=== PATIENT | male | born 1950 | race Caucasian/White ===

== ENCOUNTER 2019-10-28 12:48 | Emergency (ER) | payer MEDICARE ==
[2019-10-28] MEDS ORDERED: Sodium Chloride 0.9% 10 ML Syringe FLUSH PRN (13:11)
[2019-10-28] MEDS ORDERED: Lidocaine 1% 10 ML MDV INJECT ONE (13:11)
[2019-10-28] MEDS ORDERED: ceFAZolin 2 GM in Premix Bag 1 BAG IV ONE (13:11)
[2019-10-28] MEDS ORDERED: Diphtheria,Pertussis(Acell),Tetanus Vaccine 0.5 ML Syringe IM ONE (13:17)
--- NOTE | 2019-10-28 13:19 | EDM.PDOC ---
ED HPI GENERAL MEDICAL PROBLEM - General Chief Complaint: Laceration Stated Complaint: LT HAND LAC Time Seen by Provider: 10/28/19 12:54 Source of Information: Reports: Patient, RN Notes Reviewed History Limitations: Reports: No Limitations - History of Present Illness INITIAL COMMENTS - FREE TEXT/NARRATIVE: The patient is a 69-year-old male who presents to the ED for evaluation of a left hand laceration. The patient states that around 12:15pm, he was working in his garage with a needle grinder/cutting wheel, and ended up cutting his left hand. Patient's not sure of his last tetanus booster. The laceration does involve his left MCP, on the posterior aspect, and does look as if he may have disrupted his extensor tendon. He states that he can bend the finger down, can but but cannot bring it back. Patient is not having any numbness or tingling to the area. Patient is right-hand dominant. Laceration is linear, no active bleeding, and is roughly 4 cm in length. Left Hand Pain Score (Numeric/FACES): 4 - Related Data Allergies Allergy/AdvReac Type Severity Reaction Status Date / Time No Known Allergies Allergy Verified 08/13/19 08:37 Home Meds: Home Meds Fluticasone Propion/Salmeterol [Wixela 250-50 Inhub] 1 puff INH DAILY 10/28/19 [ History] Past Medical History Respiratory History: Reports: Asthma Social & Family History - Tobacco Use Smoking Status *Q: Current Every Day Smoker Years of Tobacco use: 30 Packs/Tins Daily: 0.2 - Caffeine Use Caffeine Use: Reports: Coffee - Recreational Drug Use Recreational Drug Use: No ED ROS GENERAL - Review of Systems Review Of Systems: Comprehensive ROS is negative, except as noted in HPI. ED EXAM, SKIN/RASH Exam: See Below Exam Limited By: No Limitations General Appearance: Alert, WD/WN, No Apparent Distress Respiratory/Chest: No Respiratory Distress, Lungs Clear, Normal Breath Sounds, No Accessory Muscle Use, Chest Non-Tender Cardiovascular: Normal Peripheral Pulses, Regular Rate, Rhythm, No Murmur Peripheral Pulses: 3+: Radial (L), Radial (R) Extremities: Normal Capillary Refill, Limited Range of Motion (of left index finger, has good flexion, but does not have extension capabilities at this time. ) Neurological: Alert, Oriented, Normal Cognition, No Motor/Sensory Deficits Psychiatric: Normal Affect, Normal Mood Skin: Warm, Dry, Normal Color, No Rash, Wound/Incision (4cm linear wound to posterior aspect of 2nd MCP joint, with apparent extensor tendon injury. No active bleeding.) ED SKIN PROCEDURES - Laceration/Wound Repair Left Posterior Digit - 2nd (Index) Appearance: Superficial, Linear, Clean Distal NVT: Neuro & Vascular Intact Anesthetic Type: Local Exploration/Debridement/Repair: Wound Explored, In a Bloodless Field, Explored to Base, No Foreign Material Found Closed with: Sutures Lac/Wound length In cm: 4 Suture Size: 4-0 Sterile Dressing Applied: Nurse Tetanus Status Addressed: Yes (updated at today's visit) Complications: Yes Complication Description: extensor tendon disruption - Splinting Left Upper Extremity Splint Site: L hand/2nd MCP Pre-Procedure NV Status: Normal Post-Procedure NV Status: Normal Splint Material: Fiberglass Splint Design: Volar Applied & Form Fitted By: Provider, Nurse Provider Post-Splint Application NV Check: NV Status Normal, Good Position Complications: No Course - Vital Signs Last Recorded V/S: Last Vital Signs Temp 98.0 F 10/28/19 13:07 Pulse 67 10/28/19 13:07 Resp 20 10/28/19 13:07 BP 135/86 10/28/19 13:07 Pulse Ox 95 10/28/19 13:07 - Orders/Labs/Meds Orders: Active Orders 24 hr Category Date Time Status Peripheral IV Care [RC] . DIRECTED Care 10/28/19 13:11 Ordered Vaccines to be Administered [RC] PER UNIT ROUTINE Care 10/28/19 13:17 Ordered Sodium Chloride 0.9% [Saline Flush] Med 10/28/19 13:11 Ordered 10 ml FLUSH ASDIRECTED PRN Peripheral IV Insertion Adult [OM.PC] Stat Oth 10/28/19 13:10 Ordered Medication Orders Sodium Chloride (Saline Flush) 10 ml FLUSH ASDIRECTED PRN PRN Reason: Keep Vein Open Last Admin: 10/28/19 13:47 Dose: 10 ml Meds: Medications Generic Name Dose Route Start Last Admin Trade Name Freq PRN Reason Stop Dose Admin Sodium Chloride 10 ml 10/28/19 13:11 10/28/19 13:47 Saline Flush FLUSH 10 ml ASDIRECTED PRN Administration Keep Vein Open Discontinued Medications Generic Name Dose Route Start Last Admin Trade Name Alexandra PRN Reason Stop Dose Admin Diphtheria/Tetanus/Acell Pertussis 0.5 ml 10/28/19 13:17 10/28/19 13:47 Adacel IM 10/28/19 13:18 0.5 ml .ONCE ONE Administration Cefazolin Sodium/Dextrose 2 gm 50 mls @ 100 mls/hr 10/28/19 13:11 10/28/19 13 :46 / Premix IV 10/28/19 13:40 100 mls/hr ONETIME ONE Administration Lidocaine HCl 10 ml 10/28/19 13:11 10/28/19 14:18 Xylocaine 1% INJECT 10/28/19 13:12 10 ml ONETIME ONE Administration - Re-Assessments/Exams Free Text/Narrative Re-Assessment/Exam: 10/28/19 14:08 Patient's case was discussed with Dr. Catherine at [facility] in [place], he anticipates the patient will have an appointment tomorrow have the extensor tendon fixed. He states to try to closely approximate the wound, and splint the hand in a position of comfort so he is not moving his finger around. He does not recommend outpatient antibiotics, but states that 2 g Ancef is fine. Departure - Departure Time of Disposition: 14:41 Disposition: Home, Self-Care 01 Condition: Fair Clinical Impression: Hand laceration involving tendon Qualifiers: Encounter type: initial encounter Laterality: left Qualified Code(s): S61.412A - Laceration without foreign body of left hand, initial encounter - Discharge Information *PRESCRIPTION DRUG MONITORING PROGRAM REVIEWED*: No *COPY OF PRESCRIPTION DRUG MONITORING REPORT IN PATIENT LATRELL: No Instructions: Sutured Wound Care, [id number], Tendon Repair Referrals: Byron Lane Jr, MD [Primary Care Provider] - Forms: ED Department Discharge Additional Instructions: You have been evaluated in the ED for your left hand laceration. Your x-ray demonstrated no acute fracture of your left hand. These images have been electronically shared with [facility] for your appointment tomorrow. Please use ice as tolerated to the affected area. You may take Tylenol 500 mg or ibuprofen 600mg q6 hrs for pain relief. Please do so until you have a tolerable level of pain with activity. Do not exceed 4000mg Tylenol, Do not exceed 3200mg ibuprofen in a 24 hour time period. [facility] [place] was called on your behalf, Dr. Mele Catherine was briefed on your case, and you have an appointment at [facility], at 9:40 AM central time, the address is [address] in [facility]. Please show up at least 1/2-hour early. This means you would need to be in [place] by 8:15 AM [place] time. Please return to ED if your symptoms should change or worsen. Sepsis Event Note - Evaluation Sepsis Screening Result: No Definite Risk - Focused Exam Vital Signs: Vital Signs Temp Pulse Resp BP Pulse Ox 10/28/19 13:07 98.0 F 67 20 135/86 95 Date Exam was Performed: 10/28/19 Time Exam was Performed: 14:41 - My Orders Last 24 Hours: My Active Orders 10/28/19 13:10 Peripheral IV Insertion Adult [OM.PC] Stat 10/28/19 13:11 Peripheral IV Care [RC] . DIRECTED Sodium Chloride 0.9% [Saline Flush] 10 ml FLUSH ASDIRECTED PRN 10/28/19 13:17 Vaccines to be Administered [RC] PER UNIT ROUTINE - Assessment/Plan Last 24 Hours: My Active Orders 10/28/19 13:10 Peripheral IV Insertion Adult [OM.PC] Stat 10/28/19 13:11 Peripheral IV Care [RC] . DIRECTED Sodium Chloride 0.9% [Saline Flush] 10 ml FLUSH ASDIRECTED PRN 10/28/19 13:17 Vaccines to be Administered [RC] PER UNIT ROUTINE
--- NOTE | 2019-10-28 13:52 | CR ---
Left hand: 4 views left hand were obtained. Soft tissue injury is present. Soft tissue foreign body is, noted within the distal 5th finger. 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 Severe joint space loss is noted within the 2nd and 3rd MCP joints. Additional foreign body is seen within the soft tissues of the 3rd finger at the level of the PIP joint. Cyst is noted within the lunate bone believed to be benign. No acute fracture or other bony abnormality is appreciated. Impression: 1. Soft tissue foreign bodies most likely chronic. 2. Soft tissue injury. Degenerative change. 3. No acute bony abnormality is appreciated. Diagnostic code #2 This report was dictated in MDT
== END 2019-10-28 15:00 | disposition home or self-care (01) ==
LOC: JD.ED 12:48
DX: S66.321A Laceration of extensor muscle, fascia and tendon of left index finger at wrist and hand level, initial encounter (principal); J45.909 Unspecified asthma, uncomplicated; F17.210 Nicotine dependence, cigarettes, uncomplicated; W31.89XA Contact with other specified machinery, initial encounter
CPT/HCPCS: 12002; 73130; 90471; 90715; 96365; 99283; J0690; J2001